=== PATIENT | female | born 2000 | race African-American/Black ===

== ENCOUNTER 2021-03-01 19:29 | Emergency (ER) | payer SELFPAY ==
[~2021-03-01] VITALS: Ht 162.6 cm; Wt 61.2 kg
[2021-03-01] MEDS ORDERED: KETOROLAC TROMETHAMINE 30 MG/ML VIAL IV STA (20:14)
[2021-03-01] MEDS ORDERED: ONDANSETRON HCL INJ 2MG/ML 2ML 2 MG/ML VIAL IV STA (20:14)
[2021-03-01] MEDS ORDERED: FAMOTIDINE 20 MG/2 ML VIAL IV STA (20:14)
[2021-03-01] MEDS ORDERED: PROMETHAZINE 25MG/ NS 50ML (IV) IV ONE (20:15)
[2021-03-01] MEDS ORDERED: SODIUM CHLORIDE 0.9% 1000ML 1,000 ML IV SCH (20:15)
[2021-03-01] MEDS ORDERED: PROMETHAZINE HCL (IM) 25 MG/ML VIAL IM ONE (20:17)
[2021-03-01] MEDS ORDERED: ONDANSETRON HCL INJ 2MG/ML 2ML 2 MG/ML VIAL ONE (20:17)
[2021-03-01] MEDS ORDERED: SODIUM CHLORIDE 0.9% 1000ML 1,000 ML ONE (20:17)
[2021-03-01] MEDS ORDERED: LEVOFLOXACIN 500MG/D5W 100ML 100 ML IV ONE ×2 (20:30→20:46)
[2021-03-01] MEDS ORDERED: CEFTRIAXONE 1 GM in SODIUM CHLORIDE 0.9% 50ML 50 ML IV ONE (20:30)
[2021-03-01] MEDS ORDERED: KETOROLAC TROMETHAMINE 30 MG/ML VIAL ONE (20:46)
[2021-03-01] MEDS ORDERED: FAMOTIDINE 20 MG/2 ML VIAL IV ONE (20:46)
[2021-03-01] MEDS ORDERED: LEVOFLOXACIN500 MG PO (21:36)
[2021-03-01] MEDS ORDERED: PROMETHAZINE HC25 M1 PO (21:37)
[2021-03-01] MEDS ORDERED: SODIUM CHLORIDE 0.9% 500ML 500 ML ONE (21:49)
[2021-03-01] MEDS ORDERED: SODIUM CHLORIDE 0.9% 500ML 500 ML IV ONE (22:00)
== END 2021-03-01 22:58 | disposition home or self-care (01) ==
LOC: FSED 19:40
DX: R11.2 Nausea with vomiting, unspecified (principal); N94.6 Dysmenorrhea, unspecified; N39.0 Urinary tract infection, site not specified; F17.210 Nicotine dependence, cigarettes, uncomplicated
CPT/HCPCS: 80053; 81003; 81025; 85025; 87086; 87186; 99283; J1885; J1956; J2405; J2550; J7030; J7040